=== PATIENT | female | born 2005 | race Caucasian/White ===

== ENCOUNTER 2025-02-01 02:59 | Emergency (ER) | payer OTHER, SELFPAY ==
--- OUTSIDE RECORDS SUMMARY | 2025-02-01 03:01 | XMS_ITS | Continuity of Care Document ---
Author Organization [facility] Address [address] [place] [address] Phone Care Team Providers Care Director Of Financial Planning Name Role Phone Bryanna MERCADO MD, Zacarias Unavailable Unavailable Allergies, Adverse Reactions, Alerts Substance Reaction Status Criticality No Known Allergies Active No Inform ation Procedures Procedure Date X-ray exam knee, 4+ views X-ray exam knee, 4+ views Office/outpatient visit,[facility] 2018 Advance Directives Directive Yes / No Effective Date File Name No Information Encounters Encounter Description Practice Location Reason(s) For Visit Diagnoses Date Provider Providers Copied on Encounter Office/outpat ient visit,[facility] [facility] [facility], [address], [id number], tel:[phone] [facility] [employer] [facility] left knee pain (chief complaint) Pain in left knee Bryanna Adames. [address], [address], [place], [place], [id number], [place]. tel:[phone] Family History Family Member Type Diagnosis Age At Onset Mother Problem (finding) Heart Disease Sister Problem (finding) Kidney Disease Mother Problem (finding) Hypertension Mother Problem (finding) Kidney Disease Payers Payer name Insurance type Covered constitution party ID Authoriza tion(s) Pat Jalloh [id number] Social History Type Description Quantity Date Captured Comments Alcohol Use Details Unknown Caffeine Use Details Unknown Tobacco Use Status No Information Smoking Status Never smoker Non-Smoking Tobacco Use Details : No Details Available : No Details Available Sex Female Vital Signs Date / Time: Height Weight BMI Pulse Rate Blood Pressure Temperature Respiratory Rate Body Surface Area Head Circumference Head Circ. Percentile Wt./Christian. Percentile BMI percentile Pulse Ox Inhaled Ox 3:20 PM 61.00 in 54.431 kg (120.00 lbs) 22.6 7 kg/m eter (2) 81 Chief Complaint And Reason For Visit From encounter dated '04/14/2019 14:15'. left knee pain (chief complaint). Description: Ms Claire is a 13 year 11 month old female who complains of left knee pain. She presents with pain on the left side. She states that the symptoms have been acute traumatic and began 3 weeks ago. Gemini states that the symptoms began as the result of a direct blow injury. She reports running into a desk. The symptoms occur intermittently. The problem is unchanged. Currently the patient states that the symptoms are moderate. The pain is described as aching and dull. The symptoms occur with activity. The patient is experiencing pain in the following location: anterior on the left side. The symptoms are aggravated by ascending stairs, bent knee ac tivities, sports and walking. Gemini states that the symptoms are relieved by ice and rest. In addition to left knee pain the patient is also experiencing cracking and popping. Pertinent negatives include chills, fever, locking and tingling. The patient has had a previous x-ray. She has had no previous treatment. Patient has not had any pertinent therapy for this condition. Patient has had no prior surgeries. Reason For Referral Reason For Referral No Information Plan Of Treatment Date Type Action Status Referral Ordered: X-ray exam knee, 4+ views LT knee ordered History Of Present Illness Encounter Date Complaint History Of Prese nt Illness left knee pain Ms Claire is a 13 year 11 month old female who complains of left knee pain. She presents with pain on the left side. She states that the symptoms have been acute traumatic and began 3 weeks ago. Gemini states that the symptoms began as the result of a direct blow injury. She reports running into a desk. The symptoms occur intermittently. The problem is unchanged. Currently the patient states that the symptoms are moderate. The pain is described as aching and dull. The symptoms occur with activity. The patient is experiencing pain in the following location: anterior on the left side. The symptoms are aggravated by ascending stairs, bent knee activities, sports and walking. Gemini states that the symptoms are relieved by ice and rest. In addition to left knee pain the patient is also experiencing cracking and popping. Pertinent negatives include chills, fever, locking and tingling. The patient has had a previous x-ray. She has had no previous treatment. Patient has not had any pertinent therapy for this condition. Patient has had no prior surgeries. Functional Status Date Functional Assessmen t No Information Instructions Date Instruction Additional Infor mation The patient was give n a prescription for a comprehensive physical therapy guided patellofemoral rehabilitation program, including not only quad and hamstring rehab but also the importance of hip and knee mechanics and core strengthening. They were also given icing instructions and we discussed the importance of this to the overall treatment regimen.If the patient is not improved in 6 to 8 weeks time after adherence to the PT program I will see them back for further evaluation. We discussed if symptoms resolve we would see the patient back on an as needed basis. The patient understood and was happy with the plan and had all their questions answered in the office today. Related to Pain in left knee Assessments Type Assessment Date assessment Pain in left knee impression We discussed in qing wi the pathophysiology, symptoms, and treatment options of patellofemoral pain. We discussed specifically the non-operative management of this problem, as well as the need for a comprehensive treatment program including icing, activity modifications, weight control/weight loss, and a detailed physical therapy regimen. We discussed only in the setting of failed traditional management or if there are other atypical findings on exam would an MRI be indicated. After a thorough discussion the patient and I have agreed to proceed with the following treatment plan: Mental Status Date Cognitive Assessment Orientation - [place] ed to time, place, person, situation.Normal Orientation Patient Care Teams Name Effective Dates (start - stop) Status Members No Information
[2025-02-01 03:06] VITALS: BP 104/76; PULSE 80; RESP 16; TEMP 36.8; O2SAT 100
--- OUTSIDE RECORDS SUMMARY | 2025-02-01 03:20 | XMS_ITS | Continuity of Care Document ---
Author Organization [facility] Address [address] [place] [address] Phone Care Team Providers Care Plant Director Name Role Phone Bryanna MERCADO MD, Zacarias Unavailable Unavailable Allergies, Adverse Reactions, Alerts Substance Reaction Status Criticality No Known Allergies Active No Inform ation Procedures Procedure Date X-ray exam knee, 4+ views X-ray exam knee, 4+ views Office/outpatient visit,[facility] 2018 Advance Directives Directive Yes / No Effective Date File Name No Information Encounters Encounter Description Practice Location Reason(s) For Visit Diagnoses Date Provider Providers Copied on Encounter Office[facility]pat ient [place] [facility] [place] [facility], [address], [id number], tel:[phone] [email or web address] [email or web address] [facility] left knee pain (chief complaint) Pain in left knee Bryanna Adames. [address], [place], [place], [id number], [place]. tel:[phone] Family History Family Member Type Diagnosis Age At Onset Mother Problem (finding) Heart Disease Sister Problem (finding) Kidney Disease Mother Problem (finding) Hypertension Mother Problem (finding) Kidney Disease Payers Payer name Insurance type Covered republican ID Authoriza tion(s) Pat Jalloh [id number] Social History Type Description Quantity Date Captured [...] left knee impression We discussed in qing ma the pathophysiology, symptoms, and treatment options of [...] Mental Status Date Cognitive Assessment Orientation - [place] ed to time, place, person, situation.Normal Orientation Patient Care Teams Name Effective Dates (start - stop) Status Members No Information
--- NOTE | 2025-02-01 03:33 | ED.GENADULT ---
HPI - General Adult General Chief complaint: Wound/Laceration Stated complaint: laceration to chin Time Seen by Provider: 02/01/25 03:02 History of Present Illness HPI narrative: This is a 19-year-old female presenting with a laceration to her chin. She slipped fell the floor. She has no other injuries. No loss of consciousness. No use of blood thinners. Related Data Allergies Allergy/AdvReac Type Severity Reaction Status Date / Time No Known Allergies Allergy Verified 02/01/25 03:00 [facility] Past Medical History Medical History Vaginal discharge Surgical History Surgical History History of back surgery Family History Family History Mother Hypertension Social History Social History Smoking status: Never smoker Alcohol intake: never Substance use: never Do You Feel Safe in your Home?: Yes Lack of Transportation: No Lack of Food: Sometimes True Current Housing: I Have Housing Concerned About Future Housing: No Difficulty Paying Gas/Electric Bills: YES Difficulty Paying for Meds: No Currently Unemployed: No Education: High School Diploma/GED Difficulty w/ Childcare or Family Care: No Living arrangements: with family Occupation/Education: student Gender identity (if verbalized by the patient): Female Sexual Orientation (if Verbalized by the Patient): Straight or Heterosexual Exam Narrative: APPEARANCE: No apparent distress. Head: atraumatic. EYES: EOMI, NOSE: Atraumatic NECK: Trachea midline RESPIRATORY: No increased rate of breathing CARDIOVASCULAR: RRR, ABDOMINAL: Non-distended MUSCULOSKELETAl: No obvious deformities NEURO: Alert. Moving 4/4 extremities SKIN:: 1.5 cm laceration to the chin PSYCHIATRIC: Normal affect Course Vital Signs Vital signs: Vital Signs Temperature 98.3 F 02/01/25 03:06 Pulse Rate 80 02/01/25 03:06 Respiratory Rate 16 02/01/25 03:06 Blood Pressure 104/76 02/01/25 03:06 Pulse Oximetry 100 02/01/25 03:06 Oxygen Delivery Room Air 02/01/25 03:06 Temperature 98.3 F 02/01/25 03:06 Pulse Rate 80 02/01/25 03:06 Respiratory Rate 16 02/01/25 03:06 Blood Pressure 104/76 02/01/25 03:06 Pulse Oximetry 100 02/01/25 03:06 Oxygen Delivery Room Air 02/01/25 03:06 Procedures Laceration Laceration 1: Date: 02/01/25 Site: face Size (cm): 1.5 Description: linear Depth: simple, single layer Local Anesthetic: bupivacaine 0.25% Amount of anesthesia used (mL): 4 Pre-repair: wound explored, irrigated extensively and deep structures intact ====== Skin Level ====== Skin layer closed with: prolene Size (cm): 5-0 Number of sutures: 3 Technique: simple, interrupted ====== Subcutaneous Layer ====== ====== Muscle Layer ====== ====== Tendon Layer ====== Medical Decision Making Vital Signs Vital Signs: Vital Signs Temperature 98.3 F 02/01/25 03:06 Pulse Rate 80 02/01/25 03:06 Respiratory Rate 16 02/01/25 03:06 Blood Pressure 104/76 02/01/25 03:06 Pulse Oximetry 100 02/01/25 03:06 Oxygen Delivery Room Air 02/01/25 03:06 Temperature 98.3 F 02/01/25 03:06 Pulse Rate 80 02/01/25 03:06 Respiratory Rate 16 02/01/25 03:06 Blood Pressure 104/76 02/01/25 03:06 Pulse Oximetry 100 02/01/25 03:06 Oxygen Delivery Room Air 02/01/25 03:06 Discharge Plan Discharge Clinical Impression: Chin laceration Patient Disposition: Home Condition: Stable Instructions: Antibiotic Form, Care For Your Stitches (ED) Additional Instructions: You were seen in the ED for a chin laceration. The three sutures need to be removed by medical professional in 5-7 days. If you develop signs of infection like increased redness pain or purulent discharge please return to the ED for re-evaluation. Patient Language: Cameroonian Prescriptions: No Action drospirenone-ethinyl estradiol [Kassi (28)] 3-0.02 mg tablet 1 tablet PO DAILY Qty: 84 4RF Follow-up/Referrals: PHYSICIAN,ENVIRONMENTAL SAFETY SPECIALIST [Primary Care Provider] -
[2025-02-01 03:55] VITALS: BP 93/80; PULSE 86; RESP 14; O2SAT 99
== END 2025-02-01 03:56 | disposition home or self-care (01) ==
PROVIDERS: Emergency Provider Emergency Medicine
DX: S01.81XA Laceration without foreign body of other part of head, initial encounter (principal); W01.0XXA Fall on same level from slipping, tripping and stumbling without subsequent striking against object, initial encounter
CPT/HCPCS: 12011; 99282